=== PATIENT | female | born 1965 | race Caucasian/White ===

== ENCOUNTER 2025-10-16 08:25 | Outpatient (REF) | payer OTHER, SELFPAY ==
--- NOTE | ~2025-10-16 | XR_ITS ---
EXAMINATION: XR LUMBOSACRAL SPINE CLINICAL INFORMATION: M54.50 - Low back pain, unspecified COMPARISON: None available. TECHNIQUE: 5 views of the lumbar spine, inclusive of bilateral oblique views, were obtained. FINDINGS: There is a mild to moderate levoconvex scoliosis, apex at L2-3. There is a normal lumbar lordosis. There are trace degenerative retrolistheses of L1 on L2, L2 on L3, and L3 on L4. Alignment is otherwise anatomic. Mild to moderate diffuse disc degeneration is present. Hypertrophic degenerative facet changes are present mainly at L4-S1. There are no pars defects. There are soft tissue vascular calcifications. Soft tissues otherwise appear normal. XR/XR lumbar spine 4V min IMPRESSION: 1. No acute bony or soft tissue finding of the lumbar spine. 2. Mild to moderate levoconvex scoliosis, and mild to moderate lumbar spondylosis. Electronically signed by: Brad Dominguez MD 10/16/2025 12:13 PM [facility]
--- NOTE | ~2025-10-16 | XR_ITS ---
EXAMINATION: XR THORACIC SPINE CLINICAL INFORMATION: M54.9 - Dorsalgia, unspecified COMPARISON: None available. TECHNIQUE: 3 views of the thoracic spine were obtained. FINDINGS: There is a very mild S-shaped thoracolumbar scoliosis, the superior component convex to the left, apex at T2, and the inferior component convex to the right, apex at T10. There is a normal thoracic kyphosis. There is no fracture, compression deformity, or suspicious bone lesion. The disc spaces are grossly preserved. Facets are normally aligned. No soft tissue abnormalities. XR/XR thoracic spine 3V IMPRESSION: 1. Very mild S-shaped scoliosis of the thoracolumbar spine. 2. Otherwise normal exam. Electronically signed by: Brad Dominguez MD 10/16/2025 12:10 PM [facility]
== END 2025-10-16 08:26 | disposition home or self-care (01) ==
LOC: HO.XRAY 08:25
PROVIDERS: PCP Student in an Organized Health Care Education/Training Program; Visit Provider Nurse Practitioner Family
DX: M47.26 Other spondylosis with radiculopathy, lumbar region (principal); M47.25 Other spondylosis with radiculopathy, thoracolumbar region; M96.1 Postlaminectomy syndrome, not elsewhere classified; M21.371 Foot drop, right foot; Z79.899 Other long term (current) drug therapy; Z96.652 Presence of left artificial knee joint
CPT/HCPCS: 72072; 72110; 99202

== ENCOUNTER 2025-10-16 08:25 | Outpatient (AMB) | payer OTHER, SELFPAY ==
--- OUTSIDE RECORDS SUMMARY | 2025-10-16 08:32 | XMS_ITS | Clinical Summary ---
Author Organization [facility] Address [address] [place] [address] Care Team Providers Care Dental Technician Apprentice Name Role Phone Jef Mccartney Primary Care Provider [phone] Allergies Active Allergy Reactions Criticality Noted Date Comments Adhesive Tape-Silicones Rash 09/21/2018 Sulfamethoxazole-Trimethop rim Other (see comments) 09/21/2018 Neck and facial redness Prochlorperazine Swelling High 09/21/2018 thongue Cephalexin Other (see comments) 09/21/2018 Neck and facial redness Latex, Natural Rubber Itching,Rash 09/21/2018 Morphine Other (see comments) 09/21/2018 Body has hyper sensitive to it Scopolamine Itching,Rash 09/21/2018 Medications topiramate sprinkle (TOPAMAX SPRINKLE) 25 mg capsule Take 25 mg by mouth 2 times a day. 5 08/25/2018 Active cyanocobalamin, vitamin B-12, (VITAMIN B-12 ORAL) Take by mouth daily. Active cholecalciferol (VITAMIN D3) 1,000 unit tablet Take 1,000 Units by mouth daily. Active fexofenadine (ORTEGA) 180 mg tablet Take 180 mg by mouth every 12 hours as needed. Active desvenlafaxine succinate (PRISTIQ) 50 mg 24 hr tablet Take 50 mg by mouth once a day. 09/08/2023 Active gabapentin (NEURONTIN) 300 mg capsule Take 300 mg by mouth 3 times a day. 08/11/2023 Active Social History Tobacco Use Types Packs/Day Years Used Date Smoking Tobacco: Former Smokeless Tobacco: Never Tobacco Cessation:Counseling Given: Not Answered Comments:quit 2001 Alcohol Use Standard Drinks/Week Comments No 0 (1 standard drink = 0.6 oz pur e alcohol) Comments Unknown Sex and Gender Information Value Date Recorded Sex Assigned at Not on file Legal Sex Female 7:18 PM EDT Gender Identity Not on file Sexual Orientation Not on file Last Filed Vital Signs Vital Sign Reading Time Taken Comments Blood Pressure 146/88 11/06/2023 7:00 PM EST Pulse 70 11/06/2023 7:00 PM EST Temperature 36.7 C (98 F) 11/06/2023 7:00 PM EST Respiratory Rate 16 11/06/2023 7:00 PM EST Oxygen Saturation 99% 11/06/2023 7:00 PM EST Inhaled Oxygen Concentration - - Weight 77.1 kg (170 lb) 11/06/2023 7:00 PM EST Height 167.6 cm (5' 6 ) 11/06/2023 7:00 PM EST Body Mass Index 27.44 11/06/2023 7:00 PM EST Plan of Treatment Health Maintenance Due Date Last Done Comments Cervical Cancer Screening 1967 Cologuard 1967 Colon Cancer Screening 1967 Colonoscopy 1967 FOBT / Fit Test 1967 HIV Screening 1967 HPV and Pap Smear 1967 Pap Smear 1967 Sigmoidoscopy 1967 Hepatitis B Vaccines (1 of 3 - 19+ 3-dose series) [address] Lung Cancer Screening (Baseline) 2017 Pneumococcal Vaccine: 50+ Ye ars (2 of 2 - PCV) 07/07/2021 07/07/2020 Alcohol/Substance Use Screening 11/23/2024 Influenza Vaccine (#1) 2025 , 09/18/2021, 09/18/2021, Additional history exists COVID-19 Vaccine (4 - 2024-2 6 season) 2025 09/25/2021, 12/02/2020, 11/11/2020 DTaP,Tdap,and Td Vaccines (3 - Td or Tdap) 09/07/2033 09/07/2023, 04/03/2014, 09/18/2013, Additional history exists Zoster Vaccines Completed 08/05/2018, 07/0 12/2017, 04/27/2018, Additional history exists Insurance [facility] Care Teams Dental Technician Apprentice Relationship Specialty Start Date End Date Jef Mccartney [address] [place] [phone] PCP - General Family Medicine 11/06/23
--- NOTE | 2025-10-16 08:48 | A.OFFVIS_ITS ---
Vital Signs 3 10/16/25 08:56 Height 5 ft 6 in Weight 160 lb 2 oz BMI 25.8 BP 138/70 Blood Pressure Location Lt brachial Position Sitting Pulse 82 Pulse Source Pulse Oximeter Pulse Oximetry (%) 100 Oxygen Delivery Method Room Air Intake Visit Reasons: CHRONIC LUMBAR RADICULOPATHY Intake Note: Pain today 01/30 Dental Office Receptionist Required: No Accompanied by: Self / Same As Patient Allergies latex (Latex) Allergy (Mild, Verified 10/16/25 08:56) UNKNOWN morphine (Morphine) Allergy (Mild, Verified 10/16/25 08:56) HYPOTENSION prochlorperazine (From Compazine) Allergy (Mild, Verified 10/16/25 08:56) TONGUE SWELLIGN adhesive tape (Adhesive Tape) Allergy (Unknown, Verified 10/16/25 08:56) BLISTERS/REDDNESS alcohol Allergy (Unknown, Verified 10/16/25 08:56) Unknown cephalexin (Keflex) Allergy (Unknown, Verified 10/16/25 08:56) Unknown scopolamine (SCOPOLAMINE) Allergy (Unknown, Verified 10/16/25 08:56) ITCHING Sulfa (Sulfonamide Antibiotics) Allergy (Unknown, Verified 10/16/25 08:56) Unknown sulfamethoxazole (From BACTRIM) Allergy (Unknown, Verified 10/16/25 08:56) FLUSHING trimethoprim (From BACTRIM) Allergy (Unknown, Verified 10/16/25 08:56) FLUSHING HPI Comments Details: The patient is a 59-year-old female presenting for evaluation of chronic low back pain and radiculopathy. The mid to lower back pain has been ongoing for the past 2 years and is worsening, with the most recent flare-up lasting since May. The patient describes the pain as aching, sharp, spreading, and radiating to anterior left thigh, which is exacerbated by movement, walking, and weather changes, and is relieved by prednisone, tramadol, naproxen and methocarbamol, taken as needed. The patient's history is significant for a herniated L4-L5 disc 20 years ago, which was surgically corrected with a laminectomy by Dr. Wyatt. Following a work injury in January 2023, the patient's pain became significantly worse, leading to two hospital admissions at [facility] for overnight pain management. The patient has a known right foot drop, which is chronic; an ankle brace was tried but aggravated back pain. Previous treatments included physical therapy in June 2023, which worsened symptoms, and multiple cortisone injections with mixed results. The patient was previously seen at [facility] and [facility], where the patient was told nothing further could be done surgically. A recent MRI from August 2025 showed mild multilevel degenerative changes and minimal neuroforaminal narrowing from L3 through S1, which were similar to a prior exam in 2023. 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 Current medications for pain include tramadol 100 mg twice a day, methocarbamol, naproxen, and Tylenol. The patient previously took gabapentin, which was discontinued due to leg edema and breakthrough neuropathy, as well as oxycodone and Soma on an intermittent basis for flare-ups. - Location: Pain is localized to the mid to lower back, with some issues also noted at L1-L2. - Onset and Duration: The pain has been ongoing for the past 2 years and is worsening, with the most recent flare-up lasting for several months since May. - Quality: The pain is described as aching, sharp, spreading, and radiating. - Severity: Pain is rated as 4/10 when taking medication. - Exacerbating Factors: Pain is increased by movements, walking, and weather changes. - Relieving Factors: Prednisone and current pain medications provide some relief. - Affect: The patient is on permanent disability due to back pain. - Analgesia: Pain is currently 4/10 with medication. - Analgesia: Current medications include tramadol 100 mg twice daily, methocarbamol, naproxen, and Tylenol. - Adverse Effects: The patient stopped taking gabapentin in the past due to leg edema and breakthrough neuropathy. - Activities of Daily Living: The patient is unable to work. - Activities of Daily Living: Bending forward and returning to an upright position is problematic. - Aberrant Drug-Related Behaviors: The patient is aware that the clinic does not manage opioid programs and clarified that prior oxycodone use was intermittent for flare-ups, not continuous. Oswestry Low Back Pain Disability Score=22 [facility] Medical History (Updated 10/16/25 @ 09:26 by LIANET Huang) DJD (degenerative joint disease), lumbar Right foot drop Vitamin D deficiency Rosacea RLS (restless legs syndrome) Psoriasis Lower back pain Mixed hyperlipidemia Left leg DVT Irritable bowel syndrome with constipation IFG (impaired fasting glucose) Family history of colon cancer Vitamin B12 deficiency Surgical History (Updated 10/16/25 @ 10:12 by LIANET Huang) History of total left knee replacement (~2020) History of tonsillectomy H/O: hysterectomy H/O tubal ligation H/O umbilical hernia repair S/P TKR (total knee replacement) History of left knee surgery History of laminectomy Social History (Updated 10/16/25 @ 08:51 by Kendra Davalos) Alcohol intake: current Alcohol intake frequency: holidays/special occasions only Patient Tobacco Use Status: Former Tobacco user Tobacco use type: Cigarette Review of Systems Const Details: - Musculoskeletal: Reports chronic mid to lower back pain, described as aching, sharp, spreading, and radiating. - Musculoskeletal: Reports bilateral paraspinal muscle tightness, described as feeling like ropes . - Neurological: Reports radiculopathy and a chronic right foot drop. - Neurological: Reports neuropathy symptoms in bilateral feet, calves, and hands. Reports history of small fiber neuropathy, sees Neurology. - Neurological: Reports restless leg syndrome. - Psychiatric: Reports symptoms of attention-deficit/hyperactivity disorder (ADD). All systems reviewed & are unremarkable except as noted in HPI and below Physical Exam Vital Signs: Last Vital Signs Pulse 82 10/16/25 08:56 BP 138/70 10/16/25 08:56 Pulse Ox 100 10/16/25 08:56 Oxygen Delivery Method Room Air 10/16/25 08:56 BMI result Body Mass Index 25.8 General: Appears afebrile. Alert and oriented. Mood and affect appropriate. Follows and participates in conversation appropriately. Respiratory effort is unlabored. No cough. Able to transition from sit to stand unassisted. Ambulates with bilaterally normal heel strike and toe off. General: Yes no CVA tenderness Back/Spine/Pelvis Other: Patient is able to walk and stand on heels and tip toes with no difficulties demonstrating good motor tone. Normal gait, no limping. Mild right foot drop. Lumbar extension is intact and does not reproduce pain, lumbar flexion reproduces moderate pain and difficulty returning to an upright position after forward flexion. Demonstrates 5/5 strength of quadriceps bilaterally as well as 5/5 left and 4/5 right flexion/dorsiflexion of bilateral feet against resistance. 2+ pedal pulses bilaterally. Straight leg rise with dorsiflexion negative bilaterally. +2 patellar and +1 left and diminished right achilles reflexes bilaterally. Facet loading test positive bilaterally. Billy?s and Stinchfield tests are negative bilaterally. No groin pain with I/E hip rotations. Valsalva maneuver negative. Back: no CVA tenderness Cervical Spine: cervical ROM normal, cervical muscular tenderness, pain with cervical ROM and No Cervical spine tenderness Thoracic/Lumbar Spine: thoracic and lumbar spine normal to inspection, Thoracic/lumbar spine scar(s), Lasegue's sign negative, straight leg raise negative bilaterally, pain with thoraco-lumbar ROM, paraspinal muscle tenderness, thoraco-lumbar ROM limited, No thoracic spinal tenderness and lumbar spinal tenderness at L1, at L4 and at L5 Sacroiliac joints: bilaterally nontender Extrem General: Yes capillary refill normal, Yes no clubbing, cyanosis or edema and Yes no calf tenderness Results Reviewed Results Reviewed: Assessment & Plan Assessment & Plan (1) Lumbar post-laminectomy syndrome: Code(s): M96.1 - Postlaminectomy syndrome, not elsewhere classified Category: Medical (2) Lower back pain: Code(s): M54.50 - Low back pain, unspecified Category: Medical (3) Right foot drop: Code(s): M21.371 - Foot drop, right foot Category: Medical (4) DJD (degenerative joint disease), lumbar: Code(s): M47.816 - Spondylosis without myelopathy or radiculopathy, lumbar region Category: Medical (5) Mid back pain: Code(s): M54.9 - Dorsalgia, unspecified Category: Medical (6) Spondylosis of thoracolumbar spine: Code(s): M47.815 - Spondylosis without myelopathy or radiculopathy, thoracolumbar region Category: Medical Plan For management of chronic low back pain with radiculopathy and discogenic low back pain, records from [facility] and [facility] will be requested via a medical release to review prior interventions. The patient's recent lumbar MRI imaging will also be uploaded by Radiology department and reviewed to assess for specific findings, such as Modic changes, which may guide treatment. Advanced interventional options were discussed, including the Intracept procedure (basivertebral nerve ablation), spinal cord stimulation (SCS), and an intrathecal pain pump. The patient stated she had previously declined the Intracept procedure at another pain clinic, leaving spinal cord stimulation or ITDD trials as a primary options. She is currently on tramadol and is aware pausing opioid intact for 24 hours for ITDD trial and 60 days for ITDD implant. The process for SCS was explained, including a psychological evaluation, a one- week trial, and permanent implantation if there is significant pain relief. The patient will be provided with brochures on spinal cord stimulation, ITDD, Intracept, Sprint PNS trial and medial branch blocks to review. The patient can continue their current pain medication regimen, including tramadol, naproxen and methocarbamol as needed, with the understanding that successful interventional treatment may decrease the need for these medications. All questions and concerns have been answered and patient agreed with the treatment plan. Follow up for imaging/old records review/procedure discussion and sooner as needed. Patient was informed and verbally consented to the use of an ambient scribe for clinic note documentation during this visit. Orders: Orders 2 XR thoracic spine 3V Today M47.815 - Spondylosis without myelopathy or radiculopathy, thoracolumbar region, M54.9 - Dorsalgia, unspecified XR lumbar spine 4V min Today M54.50 - Low back pain, unspecified, M96.1 - Postlaminectomy syndrome, not elsewhere classified Coding Level of Care Code New Pt Level 4 (83467) Diagnoses Lumbar post-laminectomy syndrome M96.1 Lower back pain M54.50 Right foot drop M21.371 DJD (degenerative joint disease), lumbar M47.816 Mid back pain M54.9 Spondylosis of thoracolumbar spine M47.815
[2025-10-16 08:56] VITALS: BP 138/70; PULSE 82; O2SAT 100; BMI 25.8
== END 2025-10-16 09:26 | disposition home or self-care (01) ==
LOC: HO.PMC 08:25
PROVIDERS: PCP Student in an Organized Health Care Education/Training Program; Visit Provider Nurse Practitioner Family
DX: M96.1 Postlaminectomy syndrome, not elsewhere classified (principal); M54.50 Low back pain, unspecified; M21.371 Foot drop, right foot; M47.816 Spondylosis without myelopathy or radiculopathy, lumbar region; M54.9 Dorsalgia, unspecified; M47.815 Spondylosis without myelopathy or radiculopathy, thoracolumbar region
CPT/HCPCS: 99204

== ENCOUNTER → 2025-10-16 09:39 | Outpatient (BNV) | payer OTHER, SELFPAY | PROVIDERS: PCP Student in an Organized Health Care Education/Training Program; Visit Provider Radiology Diagnostic Radiology | DX: M47.816 Spondylosis without myelopathy or radiculopathy, lumbar region (principal); M41.86 Other forms of scoliosis, lumbar region; M54.9 Dorsalgia, unspecified | CPT/HCPCS: 72072; 72110 ==

== ENCOUNTER 2025-11-06 08:57 | Outpatient (AMB) | payer OTHER, SELFPAY ==
--- NOTE | 2025-11-06 09:05 | MHC.OFFVIS ---
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 Allergies latex (Latex) Allergy (Mild, Verified 11/06/25 09:07) UNKNOWN morphine (Morphine) Allergy (Mild, Verified 11/06/25 09:07) HYPOTENSION prochlorperazine (From Compazine) Allergy (Mild, Verified 11/06/25 09:07) TONGUE SWELLIGN adhesive tape (Adhesive Tape) Allergy (Unknown, Verified 11/06/25 09:07) BLISTERS/REDDNESS alcohol Allergy (Unknown, Verified 11/06/25 09:07) Unknown cephalexin (Keflex) Allergy (Unknown, Verified 11/06/25 09:07) Unknown scopolamine (SCOPOLAMINE) Allergy (Unknown, Verified 11/06/25 09:07) ITCHING Sulfa (Sulfonamide Antibiotics) Allergy (Unknown, Verified 11/06/25 09:07) Unknown sulfamethoxazole (From BACTRIM) Allergy (Unknown, Verified 11/06/25 09:07) FLUSHING trimethoprim (From BACTRIM) Allergy (Unknown, Verified 11/06/25 09:07) FLUSHING Medication List - Last Reconciled 11/06/25 by Vanesa Martinez LPN cholecalciferol (vitamin D3) 50 mcg PO DAILY desvenlafaxine ER 50 mg PO DAILY lamotrigine 25 mg PO BID mecobalamin (vitamin B12) 1,000 mcg PO DAILY metformin 500 mg PO DAILY methocarbamol 500 mg PO QID naproxen 500 mg PO BID pramipexole 0.125 mg PO TID rosuvastatin 10 mg PO DAILY HPI HPI Right nerve pain S1 ( according to pt): Details: History of Present Illness The patient is a 59-year-old female presenting for evaluation and management of chronic low back pain and lumbar radiculopathy. Her pain began after a herniation at L5-S1 approximately 20 years ago, for which she underwent surgery. The patient reports her back pain is worse than her leg pain, localized across the L1-L2 region as well as the lower back. During flare-ups, the pain radiates down the sciatic nerve into the groin and sporadically down the leg to the top of her right foot, leading to a right-sided foot drop that has recently increased. She states that without her daily naproxen, the pain would be severe enough to require hospitalization. Her symptoms are exacerbated by prolonged sitting or standing and activities involving pushing or pulling. 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 Recently, she has developed new left-sided pain in the hip and groin area after feeling a pop, which prompted a left hip x-ray that was unremarkable. Past treatments include multiple cortisone injections at [facility] and [facility], including into the SI joint, which were ineffective. Tramadol 50 mg and 100 mg were also trialed without benefit. She was previously seen by Dr. Bennett at [facility], who ultimately stated there was nothing more he could do for her. Based on records, it seems unlikely that facet blocks were attempted. The patient also has a history of neuropathy, for which she takes gabapentin, and scoliosis. She has had multiple MRIs, with the most recent performed on August 29, 2025. She is clear that she is seeking a long-term solution for tolerable pain control and is not interested in opioids. Pain Description - Onset: The patient reports a 20-year history of back pain following an L5-S1 herniation and subsequent surgery. - Location: Primarily in the low back across the mid and lower back, with radiation down the right sciatic nerve into the groin, leg, and top of the foot. - Associated Symptoms: The patient experiences a right foot drop, which causes a clomping sound when she walks, and leg tremors with prolonged standing. - Exacerbating Factors: Pain is worsened by prolonged sitting or standing, pushing, pulling, and bending backward. - Relieving Factors: Daily naproxen is necessary to manage pain. - Severity: The pain is described as severe enough to require hospitalization if not for her medication regimen. - Functional Impact: The pain has forced her into fpc and limits activities of daily living such as sitting and standing. Physical Exam - Back: Tenderness to palpation in the left and right lower back. - Range of Motion: Lumbar extension elicits pain. - Range of motion: Lumbar flexion is limited by weakness, not pain; patient requires hand assistance on thighs to return to standing. - Provocative maneuvers: Axial loading with extension is positive for pain. - Provocative maneuvers: Right lateral bending elicits pain on the left side. - Provocative maneuvers: Extension with right tilt elicits pain on the left side. Results - MRI Lumbar Spine (08/29/2025): Findings reviewed, notable for Modic changes at L2. - X-Ray Left Hip (recent): No abnormalities noted. - Previous Interventions: SI joint injections, greater trochanteric injections, and epidural steroid injections were performed in the past without significant benefit. Pain Management - Analgesia: The patient currently takes naproxen and methocarbamol for her back pain. - Analgesia: Despite daily medication, she continues to experience persistent pain. - Analgesia: Past trials of tramadol were ineffective. - Activities of Daily Living: The patient's pain has forced her into fpc and limits her ability to sit or stand for extended periods. - Affect: The patient understands her condition is degenerative but seeks to make her pain tolerable. - Aberrant Drug-Related Behaviors: The patient explicitly states she is not seeking opioids and is focused on long-term relief. - Aberrant Drug-Related Behaviors: The patient corrected a previous provider's note which inaccurately stated she had been taking oxycodone for a year. [facility] Medical History (Updated 11/07/25 @ 10:07 by Ramiro Blackburn MD) DJD (degenerative joint disease), lumbar Right foot drop Vitamin D deficiency Rosacea RLS (restless legs syndrome) Psoriasis Lower back pain Mixed hyperlipidemia Left leg DVT Irritable bowel syndrome with constipation IFG (impaired fasting glucose) Family history of colon cancer Vitamin B12 deficiency Surgical History (Updated 10/16/25 @ 10:12 by LIANET Huang) History of total left knee replacement (~2020) History of tonsillectomy H/O: hysterectomy H/O tubal ligation H/O umbilical hernia repair S/P TKR (total knee replacement) History of left knee surgery History of laminectomy Social History (Updated 10/16/25 @ 09:16 by Kendra Davalos) Alcohol intake: current Alcohol intake frequency: holidays/special occasions only Patient Tobacco Use Status: Former Tobacco user Tobacco use type: Cigarette Physical Exam Vital Signs: Last Vital Signs Pulse 100 11/06/25 09:06 Resp 16 11/06/25 09:06 BP 138/73 11/06/25 09:06 Pulse Ox 98 11/06/25 09:06 Oxygen Delivery Method Room Air 11/06/25 09:06 BMI result Body Mass Index 26.0 Assessment & Plan Assessment & Plan (1) Lumbar post-laminectomy syndrome: Code(s): M96.1 - Postlaminectomy syndrome, not elsewhere classified Category: Medical (2) Spondylosis of thoracolumbar spine: Code(s): M47.815 - Spondylosis without myelopathy or radiculopathy, thoracolumbar region Category: Medical (3) Vertebrogenic low back pain: Code(s): M54.51 - Vertebrogenic low back pain Category: Medical Plan Plan Patient was informed and verbally consented to the use of an ambient scribe for clinic note documentation during this visit. 1. Chronic Low Back Pain - The etiology of the patient's pain is thought to be either facetogenic or vertebrogenic in nature. - A stepwise approach will be taken, starting with diagnostic bilateral L3, L4, and L5 medial branch blocks to assess for a facet-mediated pain source. - If the diagnostic blocks provide significant relief, confirming a facetogenic source, the patient will be a candidate for either radiofrequency ablation or a peripheral nerve stimulator, pending insurance authorization. - If the medial branch blocks are not effective, basivertebral nerve ablation (Intracept procedure) will be considered to address potential vertebrogenic pain, including a possible off-label treatment at L2 due to Modic changes. - The patient is cleared to proceed with physical therapy. - The clinic will obtain prior authorization for the diagnostic medial branch blocks and contact the patient for scheduling. Discussion Notes I had a detailed discussion with the patient regarding the management of her chronic low back pain. I explained that based on her history, exam, and MRI findings, the pain is most likely originating from her back itself, with two potential sources being the facet joints or vertebrogenic pain from endplate changes (Modic changes). I outlined two main procedural pathways. The first, a more invasive but potentially permanent option if effective, is the basivertebral nerve ablation (Intracept procedure), which I explained has an 80% efficacy rate but carries a small risk of transient sciatica. The second, less invasive option is to start with diagnostic medial branch blocks. I elaborated that these are temporary test injections that, if successful twice, would confirm a facet-mediated pain source and make her a candidate for a longer-lasting radiofrequency ablation. The patient expressed a preference for a long-term solution but ultimately deferred to my clinical judgment. I recommended we proceed with the most logical and least invasive step first, which would be the diagnostic bilateral L3-L5 medial branch blocks. If this fails to identify the pain source, we will then explore the Intracept procedure. The patient understood the rationale and consented to this plan. I also confirmed that it is safe for her to begin physical therapy. We will obtain authorization and schedule her for the procedure. Patient Instructions - We will proceed with diagnostic test injections, called medial branch blocks, to help determine the source of your back pain. - These injections are minimally invasive tests and are not a long-term treatment. - Our office will contact you to schedule the procedure once we have approval from your insurance company. - Based on the results of these tests, we will discuss the next steps, which could include a more permanent procedure. - It is safe for you to start your prescribed physical therapy. - The inaccuracies in the previous provider's notes will be addressed and corrected. Coding Level of Care Code Est Pt Level 4 (80812) Diagnoses Lumbar post-laminectomy syndrome M96.1 Spondylosis of thoracolumbar spine M47.815 Vertebrogenic low back pain M54.51
[2025-11-06 09:06] VITALS: BP 138/73; PULSE 100; RESP 16; O2SAT 98; BMI 26.0
== END 2025-11-06 10:30 | disposition home or self-care (01) ==
PROVIDERS: PCP Student in an Organized Health Care Education/Training Program; Visit Provider Internal Medicine
DX: M96.1 Postlaminectomy syndrome, not elsewhere classified (principal); M47.815 Spondylosis without myelopathy or radiculopathy, thoracolumbar region; M54.51 Vertebrogenic low back pain
CPT/HCPCS: 99214

== ENCOUNTER → 2025-11-06 08:57 | Outpatient (BNVA) | payer OTHER, SELFPAY | PROVIDERS: PCP Student in an Organized Health Care Education/Training Program; Visit Provider Internal Medicine | DX: G89.29 Other chronic pain (principal); M96.1 Postlaminectomy syndrome, not elsewhere classified; M47.815 Spondylosis without myelopathy or radiculopathy, thoracolumbar region; M54.51 Vertebrogenic low back pain | CPT/HCPCS: 99212 ==